=== PATIENT | male | born 1975 | race Caucasian/White ===

== ENCOUNTER 2018-10-24 14:18 | Inpatient (IN) | payer MEDICAID ==
[~2018-10-24] VITALS: Ht 180.3 cm; Wt 90.5 kg
[2018-10-24] MEDS ORDERED: FLOVENT HFA 11012 GM INH (14:23)
[2018-10-24] MEDS ORDERED: ALBUTEROL SULF8.5 GM INH (14:23)
[2018-10-24 14:58] LABS: APPEARANCE CLEAR (CLEAR); COLOR YELLOW (YELLOW); SPECIFIC GRAVITY 1.025 (1.005-1.020)
[2018-10-24 14:59] LABS: BILIRUBIN NEGATIVE (NEGATIVE); EPITHELIAL CELLS 0-5 /hpf (0-5); GLUCOSE NEGATIVE (NEGATIVE); KETONE NEGATIVE (NEGATIVE); NITRITE NEGATIVE (NEGATIVE); PROTEIN 1+ mg/dL (NEGATIVE); RED CELLS - URINE 0-5 /hpf (0-5); UROBILINOGEN NORMAL (NORMAL); WHITE CELLS - URINE NSEEN /hpf (0-5)
[2018-10-24 15:37] LABS: ALBUMIN 3.6 g/dL (3.4-5.0); ANION GAP 12.6 mmol/L (8-16); BILIRUBIN - TOTAL 0.51 mg/dL (0.2-1.3); CALCIUM 9.5 mg/dL (8.5-10.1); CREATININE - SERUM 1.3 mg/dL (0.6-1.3); POTASSIUM - SERUM 3.6 mmol/L (3.5-5.1)
[2018-10-24 16:00] VITALS: BP 131/73
[2018-10-24 16:11] LABS: BASOPHILS 0.1 % (0-2); EOSINOPHILS 0.1 % (0-7); HEMATOCRIT 45.3 % (42.0-54.0); HEMOGLOBIN 15.6 g/dL (13.5-17.5); IMMATURE GRANULOCYTES 0.3 % (0-5); LYMPHOCYTES 5.9 % (15-50); MCHC 34.4 g/dL (31.0-37.0); MCV 78.4 fL (80.0-100.0); MONOCYTES 8.2 % (2-11); NEUTROPHILS 85.4 % (40-80); PLATELET COUNT 118 10x3/uL (130-400); RBC 5.78 10x6/uL (4.20-6.10); RDW 15.2 % (11.5-14.5); WBC 13.4 10x3/uL (4.8-10.8)
[2018-10-24 17:00] VITALS: BP 112/69
--- NOTE | 2018-10-24 19:41 | NUR ---
RECEIVED REPORT ON PT. PT ALERT AND ORIENTED WHEN ENTERING THE ROOM. PT STATES HE WOULD LIKE FOOD IF ABLE. FAMILY IN ROOM. CALL LIGHT IN REACH. PT DEMONSTRATES HOW TO USE.
--- NOTE | 2018-10-24 20:01 | NUR ---
PT WITH FAMILY IN ROOM. PT SIGNIFICANT OTHER STATES THE FAMILY IS HOMELESS AND LOW ON FUNDS. PT STATES THAT SHELTERS WERE "FULL". PT AND SIGNIFICANT OTHER HAVE OLDER CHILD WELL 1.5 YEAR OLD IN ROOM. CASE MANAGEMENT CONSULT IS NEEDED.
[2018-10-24 23:53] VITALS: BP 157/104
[2018-10-25 00:13] VITALS: BP 123/87; BMI 27.9
--- NOTE | 2018-10-25 03:32 | NUR ---
PT AND PATIENT FAMILY REMAIN AWAKE THROUGH OUT THE EVENING. DENIES NEEDS AT THIS TIME. NS 200 ML AN HOUR CONTINUES INFUSING PER ORDER IN LEFT FOREARM IV. PATENT. NO S/SX OF SWELLING OR INFILTRATION NOTED.
[2018-10-25 06:13] LABS: ALBUMIN 2.8 g/dL (3.4-5.0); ALKALINE PHOSPHATASE 61 U/L (46-116); ALT (SGPT) 20 U/L (10-68); BILIRUBIN - TOTAL 0.28 mg/dL (0.2-1.3); CALCIUM 8.7 mg/dL (8.5-10.1); CARBON DIOXIDE 22.5 mmol/L (21.0-32.0); CHLORIDE - SERUM 105 mmol/L (98-107); CREATININE - SERUM 1.1 mg/dL (0.6-1.3); POTASSIUM - SERUM 4.1 mmol/L (3.5-5.1); PROTEIN - SERUM 7.2 g/dL (6.4-8.2); SODIUM 138 mmol/L (136-145); UREA NITROGEN 11 mg/dL (7-18); eGFR NON AFRICAN AMERICAN 78 mL/min (90-120)
[2018-10-25 06:16] LABS: CALC OSMOLALITY 281 mosm/kg (275-300); GLUCOSE 220 mg/dL (74-106)
[2018-10-25 06:25] LABS: BASOPHILS 0.1 % (0-2); EOSINOPHILS 0.1 % (0-7); HEMATOCRIT 44.3 % (42.0-54.0); HEMOGLOBIN 15.3 g/dL (13.5-17.5); IMMATURE GRANULOCYTES 0.2 % (0-5); LYMPHOCYTES 6.3 % (15-50); MCH 26.3 pg (26.0-34.0); MCHC 34.5 g/dL (31.0-37.0); MEAN PLATELET VOLUME 11.2 fL (7.4-10.4); MONOCYTES 4.6 % (2-11); NEUTROPHILS 88.7 % (40-80); PLATELET COUNT 99 10x3/uL (130-400); RBC 5.81 10x6/uL (4.20-6.10); RDW 15.1 % (11.5-14.5); WBC 11.7 10x3/uL (4.8-10.8)
[2018-10-25 06:27] LABS: MCV 76.2 fL (80.0-100.0)
[2018-10-25 07:53] LABS: PLATELET ESTIMATE DECREASED; PLATELET MORPHOLOGY GIANT PLTS PRESENT
[2018-10-25 08:30] VITALS: BP 145/89
--- NOTE | 2018-10-25 09:30 | NUR ---
PT RESTING IN BED. ONE FEMALE PRESENT IN CHAIR NEXT TO PT AND ONE FEMALE AND TODDLER RESTING IN FLOOR AT END OF BED. SHIFT ASSESSMENT PERFORMED. PT REQUEST TO HAVE PIV RESITED DUE TO CURRENT PIV BEING IN AC. ATTEMPTED TO RESITE PIV TO RIGHT HAND X1 ATTEMPT. WAS UNSUCCESSFUL IN ATTEMPT. WILL ASK SECOND NURSE TO ATTEMPT PIV. NORMAL SALINE INFUSING ORDERED TO LEFT AC PIV. NO SIGNS OF INFILTRATION NOTED, PT DENIES PAIN AT THIS TIME. DENIES ANY OTHER NEEDS. WILL CONT TO FOLLOW PLAN OF CARE
[2018-10-25 12:00] VITALS: BP 146/87
[2018-10-25] MEDS ORDERED: BUSPIRONE HCL7.5 MG PO (12:34)
[2018-10-25] MEDS ORDERED: DEPAKOTE250 MG PO ×2 (12:58)
[2018-10-25] MEDS ORDERED: REMERON30 MG PO (12:59)
[2018-10-25 15:12] LABS: APPEARANCE CLEAR (CLEAR); BILIRUBIN NEGATIVE (NEGATIVE); COLOR YELLOW (YELLOW); GLUCOSE 500 mg/dL (NEGATIVE); KETONE NEGATIVE (NEGATIVE); NITRITE NEGATIVE (NEGATIVE); PROTEIN NEGATIVE (NEGATIVE); UROBILINOGEN NORMAL (NORMAL)
[2018-10-25 15:13] LABS: BACTERIA FEW /hpf (NONE SEEN); EPITHELIAL CELLS 0-5 /hpf (0-5); RED CELLS - URINE RARE /hpf (0-5); WHITE CELLS - URINE OCC /hpf (0-5)
[2018-10-25 19:55] VITALS: BP 142/77
--- NOTE | 2018-10-25 20:01 | NUR ---
PT REST IN BED, DENIES NEEDS AT THIS TIME, CALL LIGHT IN REACH.
[2018-10-25 23:41] VITALS: BP 123/84
--- NOTE | 2018-10-26 02:03 | NUR ---
REST IN BED, RESP EVEN , NO DISTRESS, CALL LIGHT IN REACH.
[2018-10-26 03:46] VITALS: BP 135/94
[2018-10-26 05:59] LABS: BASOPHILS 0.2 % (0-2); EOSINOPHILS 0.2 % (0-7); HEMATOCRIT 38.6 % (42.0-54.0); IMMATURE GRANULOCYTES 0.3 % (0-5); LYMPHOCYTES 18.5 % (15-50); MCH 25.9 pg (26.0-34.0); MCHC 33.7 g/dL (31.0-37.0); MONOCYTES 8.7 % (2-11); NEUTROPHILS 72.1 % (40-80); RBC 5.01 10x6/uL (4.20-6.10); RDW 15.6 % (11.5-14.5); WBC 12.6 10x3/uL (4.8-10.8)
[2018-10-26 06:03] LABS: PLATELET COUNT 153 10x3/uL (130-400)
[2018-10-26 06:43] LABS: ALBUMIN 2.5 g/dL (3.4-5.0); ALKALINE PHOSPHATASE 50 U/L (46-116); ALT (SGPT) 21 U/L (10-68); BILIRUBIN - TOTAL 0.26 mg/dL (0.2-1.3); CALC OSMOLALITY 291 mosm/kg (275-300); CALCIUM 8.3 mg/dL (8.5-10.1); CARBON DIOXIDE 22.7 mmol/L (21.0-32.0); CHLORIDE - SERUM 112 mmol/L (98-107); CREATININE - SERUM 1.1 mg/dL (0.6-1.3); PROTEIN - SERUM 6.4 g/dL (6.4-8.2); SODIUM 146 mmol/L (136-145); THYROID STIMULATING HORMONE 0.46 uIU/mL (0.36-3.74); UREA NITROGEN 10 mg/dL (7-18); eGFR NON AFRICAN AMERICAN 78 mL/min (90-120)
[2018-10-26 06:51] LABS: GLUCOSE 142 mg/dL (74-106)
[2018-10-26 07:56] VITALS: BP 151/103
--- NOTE | 2018-10-26 09:23 | NUR ---
ONE TIME GUEST TRAY APPROVED BY FALLON MARTINEZ, CERTIFIED NURSING ATTENDANT. ORDERED.
[2018-10-26 12:52] VITALS: BP 125/65
[2018-10-26 15:44] VITALS: BP 143/88
--- NOTE | 2018-10-26 19:15 | NUR ---
ALERT AND ORIENTATED BED LOW CALL LIGHT IN REACH AND SRX2 DENIES NEEDS AT THIS TIME. IV TO RT HAND WNL LCTA BOWEL SOUNDS X4 PULSES PAPABLE
[2018-10-26 21:00] VITALS: BP 133/82
[2018-10-27] VITALS: BP 138/97
[2018-10-27 05:04] VITALS: BP 176/102
--- NOTE | 2018-10-27 05:10 | NUR ---
CHECK BP 165/109
[2018-10-27 06:55] LABS: ALBUMIN 2.6 g/dL (3.4-5.0); ANION GAP 13.4 mmol/L (8-16); BILIRUBIN - TOTAL 0.18 mg/dL (0.2-1.3); CALCIUM 8.2 mg/dL (8.5-10.1); CARBON DIOXIDE 26.3 mmol/L (21.0-32.0); CREATININE - SERUM 1.3 mg/dL (0.6-1.3); POTASSIUM - SERUM 3.7 mmol/L (3.5-5.1); PROTEIN - SERUM 6.6 g/dL (6.4-8.2)
[2018-10-27 06:56] LABS: BASOPHILS 0.5 % (0-2); EOSINOPHILS 1.8 % (0-7); HEMATOCRIT 37.9 % (42.0-54.0); HEMOGLOBIN 12.9 g/dL (13.5-17.5); IMMATURE GRANULOCYTES 0.6 % (0-5); LYMPHOCYTES 29.5 % (15-50); MCH 26.3 pg (26.0-34.0); MCV 77.3 fL (80.0-100.0); MEAN PLATELET VOLUME 10.8 fL (7.4-10.4); MONOCYTES 10.9 % (2-11); NEUTROPHILS 56.7 % (40-80); RDW 15.7 % (11.5-14.5)
[2018-10-27 07:05] LABS: PLATELET COUNT 195 10x3/uL (130-400)
--- NOTE | 2018-10-27 07:15 | NUR ---
REC'D IN BED WITH EYES CLOSED EASILY TO AROUSED WHEN NAME IS CALLED. RESP EVEN AND UNLABORED WITH NO DISTRESS NOTED. CAN VOICE NEEDS AND WANTS WITH NONE NOTED OR VOICED ASSESSMENT COMPLETED. C/L IN REACH AT BEDSIDE.
--- NOTE | 2018-10-27 09:06 | NUR ---
CALLED AND SPOKE WITH DALE TORRES ABOUT PT ELEVATED BP. BRIAN STATED THAT SHE WILL PUT IN ORDERS FOR SOME LISINOPRIL. PT WAS MADE AWARE OF NEW ORDERS. C/L AND FAMILY AT BEDSIDE.
--- NOTE | 2018-10-27 10:39 | NUR ---
PT RESTING COMFORTABLY IN BED. MONITOR SHOWING SR 75. CALL LIGHT IN REACH, NAD NOTED.
--- NOTE | 2018-10-27 12:15 | MORECARE ---
CASE MANAGEMENT DISCHARGE SUMMARY PATIENT: MALLORY RASHID UNIT: [id number] ADM DATE: 10/24/18 AGE: 43 : 75 SEX: M ROOM/BED: D.1209 AUTHOR: ALFRED BENAVIDES PHYSICIAN: REFERRING PHYSICIAN: KIRA VALDEZ MD DATE OF SERVICE: 10/27/18 Discharge Plan Patient Name: MALLORY RASHID Facility: [facility]:[place] : 1975 Planned Disposition: Anticipated Discharge Date: Discharge Date: Expected LOS: Initial Reviewer: [email or web address] Initial Review Date: 10/27/2018 Generated: 10/27/18 1:15 pm Comments DCP- Discharge Planning Updated by [id number]: Carlie Grady on 10/27/18 11:[address] Patient Name: MALLORY RASHID Admission Status: ER Accout number: [id number] Admission Date: 10-24-2018 : 1975 Admission Diagnosis: Attending: KIRA VALDEZ Current LOS: 3 Anticipated DC Date: Planned Disposition: Primary Insurance: MEDICAID [place] Discharge Planning Comments: CM MET WITH PATIENT ABOUT DC PLANNING/NEEDS. STATES IS HOMELESS AT THIS TIME. OTHER FAMILY MEMBERS NOTED IN THE ROOM. MAY NEED TO CALL [facility] CONCERNING KIDS. CM WILL GIVE HIM A LIST OF HOMELESS SHELTERS. CM WILL FOLLOW AND ASSIST NEEDED WITH DC PLANNING/NEEDS. Carpet Sewing Machine Operator: Carlie Grady DCPIA - Discharge Planning Initial Assessment Updated by [email or web address]: Carlie Grady on 10/27/18 12:13 pm * Is the patient Alert and Oriented? Yes * PCP NONE * Pharmacy NONE * Preadmission Environment Homeless * Other Environment STATES IS HOMELESS, KIDS NOTED IN THE ROOM. * ADLs Independent * Equipment None * Additional services required to return to the preadmission environment? No * Can the patient safely return to the preadmission environment? Yes * Has this patient been hospitalized within the prior 30 days at any hospital? No Patient Name: MALLORY RASHID Page [id number] at 1215 All edits/amendments must be made on the electronic document DICTATION DATE: 10/27/18 1215 RHEOLOGIST: CALVIN 10/27/18 1215 RPT#: [id number] DC DATE: STATUS: ADM IN [facility] [address] [facility] [place] [address] END OF REPORT
[2018-10-27 12:22] VITALS: Ht 180.3 cm; Wt 90.5 kg
--- NOTE | 2018-10-27 14:32 | MORECARE ---
CASE MANAGEMENT DISCHARGE SUMMARY PATIENT: MALLORY RASHID UNIT: [id number] ADM DATE: 10/24/18 AGE: 43 : 75 SEX: M ROOM/BED: D.1209 AUTHOR: KENNEDY,DOC PHYSICIAN: REFERRING PHYSICIAN: KIRA VALDEZ MD DATE OF SERVICE: 10/27/18 Discharge Plan Patient Name: MALLORY RASHID Facility: [facility]:[place] : 1975 Planned Disposition: Anticipated Discharge Date: Discharge Date: Expected LOS: Initial Reviewer: [email or web address] Initial Review Date: 10/27/2018 Generated: 10/27/18 3:32 pm Comments DCP- Discharge Planning Updated by [email or web address]: Carlie Grady on 10/27/18 1:[address] Patient Name: MALLORY RASHID Admission Status: ER Accout number: [id number] Admission Date: 10-24-2018 : 1975 Admission Diagnosis: Attending: KIRA VALDEZ Current LOS: 3 Anticipated DC Date: Planned Disposition: Primary Insurance: MED[place]ID [place] Discharge Planning Comments: CM MET WITH PATIENT ABOUT DC PLANNING/NEEDS. STATES IS HOMELESS AT THIS TIME. OTHER FAMILY MEMBERS NOTED IN THE ROOM. MAY NEED TO CALL [facility] CONCERNING KIDS. CM WILL GIVE HIM A LIST OF HOMELESS SHELTERS. CM WILL FOLLOW AND ASSIST NEEDED WITH DC PLANNING/NEEDS. Dye Reel Operator: Carlie Grady Appended by Carlie Grady on 10/27/2018 14:25 HEALTH DATA ANALYST: CPS CALLED AT REGARDING CHILDREN THAT ARE IN THE ROOM THAT THE MOTHER STATES THEY ARE HOMELESS. SPOKE WITH VARGAS, REF NUMBER [id number]. THE CHILD IN THE ROOM DID STATE THEY HAD BEEN LIVING AT A HOTEL, THEREFORE THEY HAVE [facility]. VARGAS STATES IF WE BELIEVE THAT THEY DO NOT HAVE [facility] TO CHILD PROTECTIVE SERVICES BACK. CM WILL CONTINUE TO FOLLOW AND ASSIST NEEDED WITH DC PLANNING. DCPIA - Discharge Planning Initial Assessment Updated by [email or web address]: Carlie Grayd on 10/27/18 12:13 pm * Is the patient Alert and Oriented? Yes * PCP NONE * Pharmacy NONE * Preadmission Environment Homeless * Other Environment STATES IS HOMELESS, KIDS NOTED IN THE ROOM. * ADLs Independent * Equipment None * Additional services required to return to the preadmission environment? No * Can the patient safely return to the preadmission environment? Yes * Has this patient been hospitalized within the prior 30 days at any hospital? No Last DP export: 10/27/18 11:15 a Patient Name: MALLORY RASHID Page [id number] at 1432 All edits/amendments must be made on the electronic document DICTATION DATE: 10/27/181430 THERMAL CUTTER HAND: CALVIN 10/27/181430 RPT#: [id number] DC DATE: STATUS: ADM IN [facility] [address] [place] [address] END OF REPORT
[2018-10-27 17:10] LABS: HEPATITIS C ANTIBODY <0.1 S/CO RAT (0.0-0.9)
--- NOTE | 2018-10-27 19:11 | NUR ---
AWAKE AND ALERT IN BED IV TO RT HAND WITH NO EDEMA AND NO REDNESS. BED IS LOW AND SRX2 ARE IN USE CALL LIGHT IS IN VISITORS HAND. LCTA AND BOWEL SOUNDS X 4
[2018-10-27 20:00] VITALS: BP 162/105
--- NOTE | 2018-10-27 21:34 | NUR ---
PT IS UP WITH VISITOR AMBULATING THE [address] ...TOLERATING WELL
[2018-10-28] VITALS: BP 182/111
[2018-10-28 04:30] VITALS: BP 143/84
[2018-10-28 06:42] LABS: BASOPHILS 0.4 % (0-2); EOSINOPHILS 3.1 % (0-7); HEMATOCRIT 38.4 % (42.0-54.0); HEMOGLOBIN 13.1 g/dL (13.5-17.5); IMMATURE GRANULOCYTES 1.3 % (0-5); LYMPHOCYTES 27.2 % (15-50); MCH 26.1 pg (26.0-34.0); MCHC 34.1 g/dL (31.0-37.0); MCV 76.5 fL (80.0-100.0); MEAN PLATELET VOLUME 9.7 fL (7.4-10.4); MONOCYTES 12.6 % (2-11); NEUTROPHILS 55.4 % (40-80); PLATELET COUNT 230 10x3/uL (130-400); RBC 5.02 10x6/uL (4.20-6.10); RDW 15.5 % (11.5-14.5); WBC 7.5 10x3/uL (4.8-10.8)
[2018-10-28 07:13] LABS: ALBUMIN 2.5 g/dL (3.4-5.0); ALKALINE PHOSPHATASE 52 U/L (46-116); ALT (SGPT) 28 U/L (10-68); BILIRUBIN - TOTAL 0.18 mg/dL (0.2-1.3); CALC OSMOLALITY 285 mosm/kg (275-300); CALCIUM 8.5 mg/dL (8.5-10.1); CARBON DIOXIDE 27.5 mmol/L (21.0-32.0); CHLORIDE - SERUM 108 mmol/L (98-107); CREATININE - SERUM 1.1 mg/dL (0.6-1.3); GLUCOSE 134 mg/dL (74-106); POTASSIUM - SERUM 3.7 mmol/L (3.5-5.1); PROTEIN - SERUM 6.5 g/dL (6.4-8.2); SODIUM 143 mmol/L (136-145); UREA NITROGEN 11 mg/dL (7-18); eGFR NON AFRICAN AMERICAN 78 mL/min (90-120)
--- NOTE | 2018-10-28 07:15 | NUR ---
REC'D IN BED WITH EYES CLOSED EASILY AROUSED WHEN NAME IS CALLED. RESP EVEN AND UNLABORED WITH NO DISTRESS NOTED. CAN EXPRESS NEEDS AND WANTS. NO C/O NOTED OR VOICED. ASSESSMENT COMPLETD. C/L IN REACH AT BEDSIDE.
[2018-10-28 08:51] VITALS: BP 126/70
[2018-10-28] MEDS ORDERED: LISINOPRIL10 MG PO (10:30)
[2018-10-28] MEDS ORDERED: ZITHROMAX500 MG PO (10:30)
[2018-10-28] MEDS ORDERED: OMNICEF300 MG PO (10:30)
--- NOTE | 2018-10-28 11:46 | MORECARE ---
CASE MANAGEMENT DISCHARGE SUMMARY PATIENT: MALLORY RASHID UNIT: [id number] ADM DATE: 10/24/18 AGE: 43 : 75 SEX: M ROOM/BED: D.1209 AUTHOR: KENNEDYDOC PHYSICIAN: REFERRING PHYSICIAN: KIRA VALDEZ MD DATE OF SERVICE: 10/28/18 Discharge Plan Patient Name: MALLORY RASHID Facility: [facility]:[place] : 1975 Planned Disposition: Anticipated Discharge Date: Discharge Date: Expected LOS: Initial Reviewer: [email or web address] Initial Review Date: 10/27/2018 Generated: 10/28/18 12:46 pm Comments DCP- Discharge Planning Updated by [id number]: Carlie Grady on 10/28/18 10:[address] Patient Name: MALLORY RASHID Admission Status: ER Accout number: [id number] Admission Date: 10-24-2018 : 1975 Admission Diagnosis:PNEUMONIA, UNSPECIFIED ORGANISM Attending: KIRA VALDEZ Current LOS: 4 Anticipated DC Date: Planned Disposition: Primary Insurance: MEDICAID [place] Discharge Planning Comments: CM GAVE PATIENT AND FAMILY A LIST OF SHELTERS AND A GOOD RX CARD. PATIENT HAS MEDICAID AND SHOULD HAVE SLOTS TO GET MEDS FILLED. CM WILL FOLLOW AND ASSIST NEEDED WITH DC PLANNING/NEEDS. Burning Plant Operator: Carlie Grady DCP- Discharge Planning Updated by [email or web address]: Carlie Grady on 10/27/18 1:[address] Patient Name: MALLORY RASHID Admission Status: ER Accout number: [id number] Admission Date: 10-24-2018 : 1975 Admission Diagnosis: Attending: KIRA VALDEZ Current LOS: 3 Anticipated DC Date: Planned Disposition: Primary Insurance: MEDICAID [place] Discharge Planning Comments: CM MET WITH PATIENT ABOUT DC PLANNING/NEEDS. STATES IS HOMELESS AT THIS TIME. OTHER FAMILY MEMBERS NOTED IN THE ROOM. MAY NEED TO CALL [facility] CONCERNING KIDS. CM WILL GIVE HIM A LIST OF HOMELESS SHELTERS. CM WILL FOLLOW AND ASSIST NEEDED WITH DC PLANNING/NEEDS. Burning Plant Operator: Carlie Grady Appended by Carlie Grady on 10/27/2018 14:25 ELEMENTARY MATH TUTOR: CPS CALLED AT REGARDING CHILDREN THAT ARE IN THE ROOM THAT THE MOTHER STATES THEY ARE HOMELESS. SPOKE WITH VARGAS, REF NUMBER [id number]. THE CHILD IN THE ROOM DID STATE THEY HAD BEEN LIVING AT A HOTEL, THEREFORE THEY HAVE SKILLED NURSING. VARGAS STATES IF WE BELIEVE THAT THEY DO NOT HAVE SKILLED NURSING TO CHILD PROTECTIVE SERVICES BACK. CM WILL CONTINUE TO FOLLOW AND ASSIST NEEDED WITH DC PLANNING. DCPIA - Discharge Planning Initial Assessment Updated by [id number]: Carlie Grady on 10/27/18 12:13 pm * Is the patient Alert and Oriented? Yes * PCP NONE * Pharmacy NONE * Preadmission Environment Homeless * Other Environment STATES IS HOMELESS, KIDS NOTED IN THE ROOM. * ADLs Independent * Equipment None * Additional services required to return to the preadmission environment? No * Can the patient safely return to the preadmission environment? Yes * Has this patient been hospitalized within the prior 30 days at any hospital? No Last DP export: 10/27/18 1:32 p Patient Name: MALLORY RASHID Page [phone] at 1146 All edits/amendments must be made on the electronic document DICTATION DATE: 10/28/18 1146 CERTIFIED TUMOR REGISTRAR: CALVIN 10/28/18 1146 RPT#: [id number] DC DATE: STATUS: ADM IN [facility] [address] [place] [address] END OF REPORT
--- NOTE | 2018-10-28 14:07 | NUR ---
DC HOME AT THIS TIME. VOICE UNDERSTANDING OF DC INSTRUCTION. IV DC. NO C/O NOTED OR VOICED. FAMILY AT BEDSIDE AND VOICE UNDERSTANDING WELL.
--- NOTE | 2018-10-28 14:32 | MORECARE ---
CASE MANAGEMENT DISCHARGE SUMMARY PATIENT: MALLORY RASHID UNIT: [id number] ADM DATE: 10/24/18 AGE: 43 : 75 SEX: M ROOM/BED: D.1209 AUTHOR: KENNEDYDOC PHYSICIAN: REFERRING PHYSICIAN: KIRA VALDEZ MD DATE OF SERVICE: 10/28/18 Discharge Plan Patient Name: MALLORY RASHID Facility: [facility]:[place] : 1975 Planned Disposition: Anticipated Discharge Date: Discharge Date: 10/28/2018 Expected LOS: Initial Reviewer: [id number] Initial Review Date: 10/27/2018 Generated: 10/28/18 3:32 pm Comments DCP- Discharge Planning Updated by [id number]: Carlie Grady on 10/28/18 10:[address] Patient Name: MALLORY RASHID Admission Status: ER Accout number: [id number] Admission Date: 10-24-2018 : 1975 Admission Diagnosis:PNEUMONIA, UNSPECIFIED ORGANISM Attending: KIRA VALDEZ Current LOS: 4 Anticipated DC Date: Planned Disposition: Primary Insurance: MEDICAID [place] Discharge Planning Comments: CM GAVE PATIENT AND FAMILY A LIST OF SHELTERS AND A GOOD RX CARD. PATIENT HAS MEDICAID AND SHOULD HAVE SLOTS TO GET MEDS FILLED. CM WILL FOLLOW AND ASSIST NEEDED WITH DC PLANNING/NEEDS. Horologist: Carlie Grady DCP- Discharge Planning Updated by [email or web address]: Carlie Grady on 10/27/18 1:[address] Patient Name: MALLORY RASHID Admission Status: ER Accout number: [id number] Admission Date: 10-24-2018 : 1975 Admission Diagnosis: Attending: KIRA VALDEZ Current LOS: 3 Anticipated DC Date: Planned Disposition: Primary Insurance: [place]ID [place] Discharge Planning Comments: CM MET WITH PATIENT ABOUT DC PLANNING/NEEDS. STATES IS HOMELESS AT THIS TIME. OTHER FAMILY MEMBERS NOTED IN THE ROOM. MAY NEED TO CALL [facility] CONCERNING KIDS. CM WILL GIVE HIM A LIST OF HOMELESS SHELTERS. CM WILL FOLLOW AND ASSIST NEEDED WITH DC PLANNING/NEEDS. Horologist: Carlie Grady Appended by Carlie Grady on 10/27/2018 14:25 MERIT SYSTEM DIRECTOR: CPS CALLED AT REGARDING CHILDREN THAT ARE IN THE ROOM THAT THE MOTHER STATES THEY ARE HOMELESS. SPOKE WITH VARGAS, REF NUMBER [id number]. THE CHILD IN THE ROOM DID STATE THEY HAD BEEN LIVING AT A HOTEL, THEREFORE THEY HAVE LONGTERM. VARGAS STATES IF WE BELIEVE THAT THEY DO NOT HAVE LONGTERM TO CHILD PROTECTIVE SERVICES BACK. CM WILL CONTINUE TO FOLLOW AND ASSIST NEEDED WITH DC PLANNING. DCPIA - Discharge Planning Initial Assessment Updated by [id number]: Carlie Grady on 10/27/18 12:13 pm * Is the patient Alert and Oriented? Yes * PCP NONE * Pharmacy NONE * Preadmission Environment Homeless * Other Environment STATES IS HOMELESS, KIDS NOTED IN THE ROOM. * ADLs Independent * Equipment None * Additional services required to return to the preadmission environment? No * Can the patient safely return to the preadmission environment? Yes * Has this patient been hospitalized within the prior 30 days at any hospital? No Last DP export: 10/28/18 10:46 a Patient Name: MALLORY RASHID Page [phone] at 1432 All edits/amendments must be made on the electronic document DICTATION DATE: 10/28/18 1432 MARKETING PROGRAMS SPECIALIST: CALVIN 10/28/18 1432 RPT#: [id number] DC DATE:10/28/18 STATUS: DIS IN [facility] [address] [place] [address] END OF REPORT
[2018-10-29] MEDS ORDERED: VIBRAMYCIN 100100 MG PO (19:06)
[2018-10-29] MEDS ORDERED: ALBUTEROL SULF8.5 GM INH (19:06)
[2018-10-29] MEDS ORDERED: PREDNISONE20 MG PO (19:06)
== END 2018-10-28 14:11 | disposition home or self-care (01) | DRG 193 ==
LOC: D.ER 14:18 → D.M3 17:35
PROVIDERS: Family Medicine; Internal Medicine Hematology & Oncology; ADMIT Family Medicine
DX: J18.1 Lobar pneumonia, unspecified organism (principal); J96.21 Acute and chronic respiratory failure with hypoxia; E87.1 Hypo-osmolality and hyponatremia; F17.213 Nicotine dependence, cigarettes, with withdrawal; Z59.0 Homelessness; D69.6 Thrombocytopenia, unspecified; D50.9 Iron deficiency anemia, unspecified; I10 Essential (primary) hypertension; E11.9 Type 2 diabetes mellitus without complications; F43.10 Post-traumatic stress disorder, unspecified

== ENCOUNTER 2018-10-29 16:05 | Emergency (ER) | payer MEDICARE, MEDICAID ==
[~2018-10-29] VITALS: Ht 180.3 cm; Wt 89.5 kg
[~2018-10-29 16:05] MED LIST: ALBUTEROL SULF8.5 GM INH; BUSPIRONE HCL7.5 MG PO; DEPAKOTE250 MG PO; FLOVENT HFA 11012 GM INH; LISINOPRIL10 MG PO; OMNICEF300 MG PO; REMERON30 MG PO; ZITHROMAX500 MG PO
[2018-10-29 16:17] VITALS: BP 142/88; Ht 180.3 cm; Wt 89.5 kg
[2018-10-29 16:54] LABS: BASOPHILS 0.2 % (0-2); EOSINOPHILS 3.7 % (0-7); HEMATOCRIT 41.5 % (42.0-54.0); HEMOGLOBIN 14.4 g/dL (13.5-17.5); LYMPHOCYTES 19.1 % (15-50); MCH 26.5 pg (26.0-34.0); MCHC 34.7 g/dL (31.0-37.0); MCV 76.3 fL (80.0-100.0); MEAN PLATELET VOLUME 10.1 fL (7.4-10.4); MONOCYTES 9.4 % (2-11); NEUTROPHILS 64.6 % (40-80); RBC 5.44 10x6/uL (4.20-6.10); RDW 15.6 % (11.5-14.5); WBC 8.6 10x3/uL (4.8-10.8)
[2018-10-29 17:03] LABS: PLATELET COUNT 302 10x3/uL (130-400)
[2018-10-29 17:06] LABS: ALBUMIN 3.1 g/dL (3.4-5.0); ALKALINE PHOSPHATASE 64 U/L (46-116); ALT (SGPT) 35 U/L (10-68); BILIRUBIN - TOTAL 0.24 mg/dL (0.2-1.3); CALCIUM 8.8 mg/dL (8.5-10.1); CARBON DIOXIDE 26.6 mmol/L (21.0-32.0); CHLORIDE - SERUM 102 mmol/L (98-107); CREATININE - SERUM 1.1 mg/dL (0.6-1.3); GLUCOSE 142 mg/dL (74-106); PROTEIN - SERUM 7.6 g/dL (6.4-8.2); SODIUM 140 mmol/L (136-145); eGFR NON AFRICAN AMERICAN 78 mL/min (90-120)
[2018-10-29 17:07] LABS: CALC OSMOLALITY 281 mosm/kg (275-300); UREA NITROGEN 14 mg/dL (7-18)
[2018-10-29] MEDS ORDERED: VIBRAMYCIN 100100 MG PO (19:06)
[2018-10-29] MEDS ORDERED: ALBUTEROL SULF8.5 GM INH (19:06)
[2018-10-29] MEDS ORDERED: PREDNISONE20 MG PO (19:06)
== END 2018-10-29 20:03 | disposition home or self-care (01) ==
LOC: D.ER 16:05
PROVIDERS: Family Medicine
DX: R50.9 Fever, unspecified (principal); Z87.01 Personal history of pneumonia (recurrent); R05 Cough